=== PATIENT | female | born 2005 | race African-American/Black ===

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

== ENCOUNTER 2025-06-16 13:52 | Emergency (ER) | payer MEDICAID, SELFPAY ==
[2025-06-16 14:01] VITALS: BP 127/89; PULSE 71; RESP 16; TEMP 36.3; O2SAT 100
--- NOTE | 2025-06-16 14:03 | ED_ITS ---
HPI - Ear Problem General Chief complaint: Ear Stated complaint: Right Ear Irritation Time Seen by Provider: 06/16/25 14:05 Source: patient, RN notes reviewed and old records reviewed Mode of arrival: ambulatory Limitations: no limitations History of Present Illness HPI Narrative: 19 year old female who presents to [facility] care with complaints of right ear pain for the past week with some yellowish drainage noted. Patient reports that she noticed blood from her right ear this morning on the pillow case. Patient has history of ear problems with 4 sets of ear tubes placed in the past and has history of vertigo. Patient reports that she has no sinuc drainage or sore throat and denies any cough. 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 MD Complaint: ear pain Location: right ear Duration: constant Severity: moderate (4/10) Discharge from ear: Reports yes - bloody and yes - purulent Associated symptoms ear: decreased hearing Related Data Home Medications ?Medication ?Instructions ?Recorded ?Confirmed ?Last Taken ?Type norethindrone 1.5 mg-ethinyl tablet 06/16/25 Unknown History estradiol 30 mcg(21)/iron 75 mg(7) tablet (Katerine Fe 1.5/30 (28)) Allergies Allergy/AdvReac Type Severity Reaction Status Date / Time No Known Allergies Allergy Verified 06/16/25 13:59 Review of Systems Review of Systems: CONSTITUTIONAL: Denies malaise, chills, sweats, or fever. EYES: Denies visual changes, redness, or discharge. ENT: Reports no rhinorrhea, congestion, no sinus pain, right otalgia and no sore throat. CARDIOVASCULAR: Denies chest pain, palpitations, or edema. RESPIRATORY: Reports no cough.? Denies dyspnea. GASTROINTESTINAL: Denies abdominal pain, nausea, vomiting, diarrhea SKIN: Denies rash or itching. MUSCULOSKELETAL: Denies myalgia. NEUROLOGIC: Denies headache. All systems reviewed & are unremarkable except as noted in HPI and below PMFSH Past Medical History Medical History (Updated 06/16/25 @ 14:19 by Melanie Desai APRN) Bilateral patent pressure equalization tubes Ear infection childhood Hernia Umbilical hernia Surgical History Surgical History (Updated 12/10/23 @ 00:01 by Joseph Poole) History of ear surgery History of hernia surgery umbilical Family History Family History Father Unknown family medical history Mother Asthma Social History Social History Smoking status: Never smoker Tobacco type: cigarettes Second hand tobacco smoke exposure: No Alcohol intake: never Substance use: never Living arrangements: with family Occupation/Education: student Gender identity (if verbalized by the patient): Female Comments At time of signature, agree with nursing past medical, surgical, social and family history. There is no relevant family history pertinent to the presenting complaint Exam Narrative: GENERAL: Well-appearing, well-nourished, and in no acute distress. HEAD: Normocephalic EYES: PERRLA, conjunctivae clear ENT: Nares clear, turbinates edematous and erythematous, clear discharge. Mucous membranes moist.Right ear has noted yellow purulent drainage with some blood ear tube in place no acute redness noted. Left TM pearly capps with ear tube in place; no tragal tenderness. Oropharynx erythematous without lesions. Tonsils not enlarged and without exudate, no drooling, no hoarseness, no trismus, uvula midline. NECK: Supple. No lymphadenopathy CHEST: Clear to auscultation, breath sounds equal. No wheezing, rhonchi, rales, or stridor. No respiratory distress, speaks in full sentences. no cough noted SAO2 100% on room air HEART: Regular rate and rhythm. No murmur heard. SKIN: Warm, dry, no rash. NEURO: Alert and oriented x3. PSYCH: Normal mood and affect Course Course Emergency Course: Patient is aware of diagnosis, understands and agrees to treatment plan.? Anticipatory guidance given.? Patient agrees to follow-up as directed and is aware of reasons to seek care at the emergency department. Portions of this record may have been created with voice recognition software Level of Care: Express Care Visit Vital Signs Vital signs: Vital Signs Temperature 36.3 C L 06/16/25 14:01 Pulse Rate 71 06/16/25 14:01 Respiratory Rate 16 06/16/25 14:01 Blood Pressure 127/89 06/16/25 14:01 Pulse Oximetry 100 06/16/25 14:01 Oxygen Delivery Room Air 06/16/25 14:01 Temperature 36.3 C L 06/16/25 14:01 Pulse Rate 71 06/16/25 14:01 Respiratory Rate 16 06/16/25 14:01 Blood Pressure 127/89 06/16/25 14:01 Pulse Oximetry 100 06/16/25 14:01 Oxygen Delivery Room Air 06/16/25 14:01 Reviewed Medical Decision Making Differential Diagnosis Differential Diagnosis: URI, otitis media, otalgia, decreased hearing right ear Medical Records Medical records reviewed: Yes I reviewed the external patient's medical records. Vital Signs Vital Signs: Vital Signs Temperature 36.3 C L 06/16/25 14:01 Pulse Rate 71 06/16/25 14:01 Respiratory Rate 16 06/16/25 14:01 Blood Pressure 127/89 06/16/25 14:01 Pulse Oximetry 100 06/16/25 14:01 Oxygen Delivery Room Air 06/16/25 14:01 Temperature 36.3 C L 06/16/25 14:01 Pulse Rate 71 06/16/25 14:01 Respiratory Rate 16 06/16/25 14:01 Blood Pressure 127/89 06/16/25 14:01 Pulse Oximetry 100 06/16/25 14:01 Oxygen Delivery Room Air 06/16/25 14:01 reviewed Critical Care Time Critical Care Time Critical Care Time: No Discharge Plan Discharge Clinical Impression: Otitis media Qualifiers: Otitis media type: suppurative Chronicity: acute Laterality: right Recurrence: not specified as recurrent Spontaneous tympanic membrane rupture: without spontaneous rupture Qualified Code(s): H66.001 - Acute suppurative otitis media without spontaneous rupture of ear drum, right ear Patient Disposition: Home Condition: Stable Instructions: Antibiotic Form, Ear Infection (GEN) Additional Instructions: Increase fluids especially juices and water [id number] cough and cold medicine of your choice for your symptoms Continue daily nasal spray heat to the face 20-30 minutes 4-6 times a day for pain Salt water gargles, throat lozenges or throat sprays as desired Antibiotic ear drops as directed--finished the medication Zyrtec, Claritin or Carol daily If your symptoms persist, change or worsen significantly before you can contact your personal physician then please, without delay, go to the emergency department for further evaluation. Follow-up with PCP in 7-10 days or sooner if needed Follow up with PCP soon in regards to your blood pressure which is elevated above threshold for referral. Blood pressure above 120/80 may indicate pre- hypertension. 127/89 Patient Language: [place] Prescriptions: New ciprofloxacin-hydrocortisone 0.2-1 % drops,suspension 3 drp RIGHT EAR Q12H 7 Days Qty: 10 0RF No Action azelastine 137 mcg (0.1 %) aerosol,spray INTRANASAL Follow-up/Referrals: PHYSICIAN,HELMET HAT PUNCHER [Primary Care Provider, Internal Medicine] Time of Disposition: 14:20 Quality Ruf[place] Coma Scale Eyes: Open Verbal: Oriented and Alert Motor: Follows Commands [place] Coma Total Score: 15
== END 2025-06-16 14:25 | disposition home or self-care (01) ==
PROVIDERS: Emergency Provider Registered Nurse
DX: H66.001 Acute suppurative otitis media without spontaneous rupture of ear drum, right ear (principal)
CPT/HCPCS: 99213; G0463